=== PATIENT | female | born 2000 | race Caucasian/White ===

== ENCOUNTER 2018-05-09 03:17 | Emergency (ER) | payer SELFPAY ==
[2018-05-09 03:43] VITALS: BP 139/79
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
== END 2018-05-09 04:33 | disposition home or self-care (01) ==
LOC: JP.ED 03:17
DX: R51 Headache (principal); V40.9XXA Unspecified car occupant injured in collision with pedestrian or animal in traffic accident, initial encounter
CPT/HCPCS: 99282